=== PATIENT | female | born 1935 | race American Indian/Alaskan Native ===

== ENCOUNTER 2017-07-30 13:00 | Outpatient (CLI) | payer MEDICARE ==
--- NOTE | 2017-07-30 13:46 | XRay Report ---
Left knee 3 views. Findings: There is complete obliteration of the joint space medially with secondary hypertrophic changes. The lateral joint space appears preserved. There is narrowing of the patellofemoral joint. Diffuse osteopenia is present. Impression: Severe osteoarthritis, most pronounced medially.
== END 2017-07-30 13:01 | disposition home or self-care (01) ==
LOC: SPVIMAG 13:00
PROVIDERS: ATTEND Orthopaedic Surgery Sports Medicine
DX: M17.12 Unilateral primary osteoarthritis, left knee (principal); M85.862 Other specified disorders of bone density and structure, left lower leg